=== PATIENT | male | born 1955 | race Caucasian/White ===

== ENCOUNTER 2023-06-17 09:35 | Inpatient (IN) | payer OTHER ==
[~2023-06-17] VITALS: Ht 177.8 cm; Wt 76.4 kg
[2023-06-17] MEDS: ASPirin 325 MG TAB PO ONE (09:51)
[2023-06-17 09:52] LABS: Basophils # (auto) 0 10 ^3/uL (0-0.2); Basophils % (auto) 0.1 % (0.0-2.0); Eosinophils # (auto) 0.1 10 ^3/uL (0-0.8); Eosinophils % (auto) 0.8 % (0.0-7.0); Hematocrit 55.6 % (41.0-53.0); Lymphocytes % (auto) 9.5 % (10.0-50.0); Mean Corpuscular Hemoglobin 28.8 pg (28.0-32.0); Mean Corpuscular Hgb Conc. 32.4 g/dL (32.0-36.0); Mean Corpuscular Volume 88.9 fL (80.0-100.0); Monocytes # (auto) 0.8 10 ^3/uL (0-1.3); Monocytes % (auto) 7.7 % (0.0-12.0); Neutrophils # (auto) 8.5 10 ^3/uL (1.6-8.6); Neutrophils % (auto) 81.9 % (37.0-80.0); Nucleated Red Blood Cells % 0.2 %; Red Blood Cells 6.25 10^6/uL (4.5-5.90); Red Cell Distribution Width 15.5 % (11.8-14.3); White Blood Cell 10.4 10^3/uL (4.4-10.8)
[2023-06-17 10:11] LABS: Alanine Aminotransferase 25 U/L (7-40); Albumin 4.7 g/dL (3.2-4.8); Alkaline Phosphatase 93 U/L (46-116); Anion Gap 7 (5-15); Aspartate Aminotransferase 18 U/L (13-40); BUN/Creatinine Ratio 13.5 (10.0-20.0); Blood Urea Nitrogen 18 mg/dL (9-23); Calcium 10.1 mg/dL (8.5-10.1); Carbon Dioxide 28 mmol/L (20-30); Chloride 108 mmol/L (98-107); Glucose 126 mg/dL (74-106); Potassium 4.5 mmol/L (3.5-5.1); Sodium 143 mmol/L (136-145)
[2023-06-17] MEDS: methylPREDNISolone SOD SUCC 125 MG/2 ML VL IV ONE (10:11)
[2023-06-17 10:12] LABS: Bilirubin, Total 0.8 mg/dL (0.2-1.0); Total Protein 7.5 g/dL (5.7-8.2)
[2023-06-17] MEDS: MAGNESIUM SULFATE 1GM/100ML 100 ML IV ONE (10:14)
[2023-06-17] MEDS: IPRATROPIUM BROM 0.5 MG/2.5ML INH SOL NEB ONE (10:27)
[2023-06-17] MEDS: ALBUTEROL SULF 2.5 MG/0.5ML(0.5%) NEB SOLN NEB ONE (10:27)
[2023-06-17] MEDS: ENOXAPARIN SOD 80 MG/0.8ML SYRINGE SC ONE (10:51)
[2023-06-17 11:27] VITALS: PULSE 108; RESP 16; O2SAT 94
[2023-06-17 13:04] LABS: Urine Bacteria MANY /hpf (None Seen); Urine Blood 2+ /uL (Negative); Urine Budding Yeast OCCASIONAL /hpf (None Seen); Urine Clarity Turbid (Clear); Urine Color Yellow (Yellow); Urine Hyaline Cast FEW /lpf (0 - 2); Urine Mucus FEW (None Seen); Urine Protein, UAD 2+ (Negative); Urine Specific Gravity 1.023 (1.001-1.035); Urine Urobilinogen Normal (Negative); Urine WBC 81 /hpf (0 - 3); Urine pH 5.5 (5.0-9.0)
[2023-06-17 15:39] LABS: Base Excess -2.8 mmol/L (-2.0-2.0)
[2023-06-17 15:42] LABS: Creatinine, Urine 181.8 mg/dL (30.0-125.0)
[2023-06-17] MEDS: cefTRIAXone 1GM/50ML D5W 50 ML IV ONE (15:56)
[2023-06-17] MEDS: NICOTINE 21MG/24 HR TOPICAL PATCH TD ONE (15:56)
[2023-06-17] MEDS: ENOXAPARIN SOD 80 MG/0.8ML SYRINGE SC SCH (16:23)
[2023-06-17 16:35] LABS: INR 1.06 (0.9-1.15); Prothrombin Time 11.2 sec (9.3-11.8)
[2023-06-17] MEDS: FUROSEMIDE 20 MG/2 ML VIAL IV SCH (18:03)
[2023-06-17 18:40] VITALS: BP 150/91; PULSE 94; RESP 12; TEMP 98.7; O2SAT 91
[2023-06-17 19:12] VITALS: O2SAT 94
[2023-06-17 19:56] VITALS: PULSE 94; RESP 20; O2SAT 93
[2023-06-17 21:55] VITALS: PULSE 88; RESP 15; O2SAT 95
[2023-06-17] MEDS: ALBUTEROL SULF 2.5 MG/0.5ML(0.5%) NEB SOLN NEB SCH (21:55)
[2023-06-17] MEDS: IPRATROPIUM BROM 0.5 MG/2.5ML INH SOL NEB SCH (21:55)
[2023-06-17 22:05] VITALS: PULSE 89; RESP 16; O2SAT 97
[2023-06-17] MEDS: METOPROLOL TARTRATE 25 MG TAB PO SCH (22:17)
[2023-06-17] MEDS: ATORVASTATIN 20 MG TAB PO SCH (22:17)
[2023-06-17] MEDS: methylPREDNISolone SOD SUCC 125 MG/2 ML VL IV SCH (22:17)
[2023-06-18] VITALS (9 sets, daily range): BP systolic 149–154; BP diastolic 101–117; PULSE 83–126; RESP 14–20; TEMP 97.5–97.6; O2SAT 93–97
[2023-06-18] MEDS: MELATONIN 5 MG TAB PO ONE (01:46)
[2023-06-18 05:01] LABS: Basophils # (auto) 0 10 ^3/uL (0-0.2); Basophils % (auto) 0.1 % (0.0-2.0); Eosinophils # (auto) 0 10 ^3/uL (0-0.8); Hematocrit 48.2 % (41.0-53.0); Hemoglobin 15.9 g/dL (13.5-17.5); Lymphocytes # (auto) 0.5 10 ^3/uL (0.4-5.4); Lymphocytes % (auto) 6.5 % (10.0-50.0); Mean Corpuscular Hgb Conc. 33.1 g/dL (32.0-36.0); Mean Corpuscular Volume 87.8 fL (80.0-100.0); Monocytes # (auto) 0.2 10 ^3/uL (0-1.3); Monocytes % (auto) 2.3 % (0.0-12.0); Neutrophils # (auto) 6.6 10 ^3/uL (1.6-8.6); Neutrophils % (auto) 91.1 % (37.0-80.0); Red Blood Cells 5.49 10^6/uL (4.5-5.90); Red Cell Distribution Width 15.3 % (11.8-14.3); White Blood Cell 7.2 10^3/uL (4.4-10.8)
[2023-06-18 05:16] LABS: Alanine Aminotransferase 21 U/L (7-40); Albumin 3.7 g/dL (3.2-4.8); Alkaline Phosphatase 70 U/L (46-116); Anion Gap 6 (5-15); Aspartate Aminotransferase 17 U/L (13-40); BUN/Creatinine Ratio 18.8 (10.0-20.0); Bilirubin, Total 0.6 mg/dL (0.2-1.0); Blood Urea Nitrogen 24 mg/dL (9-23); Calcium 9.4 mg/dL (8.7-10.4); Carbon Dioxide 24 mmol/L (20-30); Chloride 109 mmol/L (98-107); Glucose 152 mg/dL (74-106); Potassium 4.4 mmol/L (3.5-5.1); Sodium 139 mmol/L (136-145); Total Protein 6.4 g/dL (5.7-8.2)
[2023-06-18 05:27] LABS: LDL Cholesterol 147 mg/dL (< 100); Triglycerides 64 mg/dL (< 150)
[2023-06-18 05:29] LABS: Cholesterol 199 mg/dL (< 200); HDL Cholesterol 47 mg/dL (40-59)
[2023-06-18] MEDS: cefTRIAXone 1GM/50ML D5W 50 ML IV SCH (09:16)
[2023-06-18] MEDS: NICOTINE 21MG/24 HR TOPICAL PATCH TD SCH (10:05)
[2023-06-18] MEDS: LISINOPRIL 5 MG TAB PO SCH (12:05)
[2023-06-18] MEDS: ASPirin 81 mg TAB PO SCH (12:05)
[2023-06-18] MEDS ORDERED: IPRATROPIUM BROM 0.5 MG/2.5ML INH SOL NEB SCH (14:00)
[2023-06-18] MEDS ORDERED: ALBUTEROL SULF 2.5 MG/0.5ML(0.5%) NEB SOLN NEB SCH (14:00)
[2023-06-18] MEDS: TEMAZEPAM 15 MG CAP PO ONE (23:36)
[2023-06-19] VITALS (12 sets, daily range): BP systolic 115–154; BP diastolic 70–108; PULSE 76–100; RESP 16–20; TEMP 97.5–97.9; O2SAT 93–98
[2023-06-19] MEDS ORDERED: IPRATROPIUM BROM 0.5 MG/2.5ML INH SOL NEB PRN (06:00)
[2023-06-19] MEDS ORDERED: ALBUTEROL SULF 2.5 MG/0.5ML(0.5%) NEB SOLN NEB PRN (06:00)
[2023-06-19 06:36] LABS: Basophils # (auto) 0 10 ^3/uL (0-0.2); Basophils % (auto) 0.2 % (0.0-2.0); Eosinophils # (auto) 0 10 ^3/uL (0-0.8); Hematocrit 51.1 % (41.0-53.0); Lymphocytes # (auto) 1.1 10 ^3/uL (0.4-5.4); Lymphocytes % (auto) 8.7 % (10.0-50.0); Mean Corpuscular Hemoglobin 29.7 pg (28.0-32.0); Mean Corpuscular Hgb Conc. 33.3 g/dL (32.0-36.0); Mean Corpuscular Volume 89.2 fL (80.0-100.0); Monocytes # (auto) 1.3 10 ^3/uL (0-1.3); Monocytes % (auto) 10.8 % (0.0-12.0); Neutrophils # (auto) 9.9 10 ^3/uL (1.6-8.6); Neutrophils % (auto) 80.3 % (37.0-80.0); Nucleated Red Blood Cells % 0.1 %; Red Blood Cells 5.73 10^6/uL (4.5-5.90); Red Cell Distribution Width 15.7 % (11.8-14.3); White Blood Cell 12.3 10^3/uL (4.4-10.8)
[2023-06-19 06:50] LABS: Calcium 9.7 mg/dL (8.7-10.4); Chloride 108 mmol/L (98-107); Potassium 4.9 mmol/L (3.5-5.1); Sodium 140 mmol/L (136-145)
[2023-06-19 06:51] LABS: Anion Gap 5 (5-15); Carbon Dioxide 27 mmol/L (20-30)
[2023-06-19 06:56] LABS: BUN/Creatinine Ratio 19.9 (10.0-20.0); Glucose 99 mg/dL (74-106)
[2023-06-19 06:58] LABS: Blood Urea Nitrogen 38 mg/dL (9-23)
[2023-06-19] MEDS: FUROSEMIDE 20 MG TAB PO SCH (10:10)
[2023-06-19] MEDS: CARVEDILOL 3.125 MG TAB PO SCH (21:55)
[2023-06-19] MEDS: TEMAZEPAM 15 MG CAP PO PRN (21:56)
[2023-06-20] VITALS (8 sets, daily range): BP systolic 105–159; BP diastolic 64–97; PULSE 67–107; RESP 15–21; TEMP 97.4–98.6; O2SAT 92–100
[2023-06-20 06:56] LABS: Chloride 112 mmol/L (98-107); Potassium 4.3 mmol/L (3.5-5.1); Sodium 142 mmol/L (136-145)
[2023-06-20 06:57] LABS: Anion Gap 5 (5-15); Calcium 8.8 mg/dL (8.7-10.4); Carbon Dioxide 25 mmol/L (20-30)
[2023-06-20 07:02] LABS: Blood Urea Nitrogen 38 mg/dL (9-23); Glucose 87 mg/dL (74-106)
[2023-06-20] MEDS: EMPAGLIFLOZIN 10 MG TAB PO SCH (08:06)
[2023-06-20] MEDS: MELATONIN 5 MG TAB PO SCH (21:21)
[2023-06-21 05:00] VITALS: BP 114/72; PULSE 55; RESP 20; TEMP 98.2; O2SAT 96
[2023-06-21 06:19] LABS: Basophils # (auto) 0 10 ^3/uL (0-0.2); Basophils % (auto) 0.2 % (0.0-2.0); Eosinophils # (auto) 0.2 10 ^3/uL (0-0.8); Eosinophils % (auto) 2.9 % (0.0-7.0); Hematocrit 48.2 % (41.0-53.0); Hemoglobin 15.8 g/dL (13.5-17.5); Lymphocytes # (auto) 1.5 10 ^3/uL (0.4-5.4); Lymphocytes % (auto) 21.3 % (10.0-50.0); Mean Corpuscular Hgb Conc. 32.7 g/dL (32.0-36.0); Mean Corpuscular Volume 88.7 fL (80.0-100.0); Monocytes % (auto) 13.9 % (0.0-12.0); Neutrophils # (auto) 4.3 10 ^3/uL (1.6-8.6); Neutrophils % (auto) 61.7 % (37.0-80.0); Nucleated Red Blood Cells % 0.1 %; Red Blood Cells 5.43 10^6/uL (4.5-5.90); Red Cell Distribution Width 15.3 % (11.8-14.3)
[2023-06-21 06:30] LABS: Chloride 109 mmol/L (98-107); Potassium 4.4 mmol/L (3.5-5.1); Sodium 141 mmol/L (136-145)
[2023-06-21 06:31] LABS: Anion Gap 3 (5-15); Calcium 9.4 mg/dL (8.5-10.1); Carbon Dioxide 29 mmol/L (20-30)
[2023-06-21 06:36] LABS: BUN/Creatinine Ratio 21.6 (10.0-20.0); Blood Urea Nitrogen 32 mg/dL (9-23); Glucose 114 mg/dL (74-106)
[2023-06-21 08:00] VITALS: BP 143/83; PULSE 77; PULSE 83; RESP 21; TEMP 97.4; O2SAT 95
[2023-06-21 12:00] VITALS: BP 127/85; PULSE 80; RESP 20; TEMP 98.1; O2SAT 97
[2023-06-21 16:00] VITALS: BP 143/94; PULSE 67; RESP 20; TEMP 98.2; O2SAT 93
[2023-06-21 20:00] VITALS: PULSE 105; RESP 20; O2SAT 97
[2023-06-21 21:00] VITALS: BP 176/121; PULSE 119; RESP 28; TEMP 97.7; O2SAT 97
[2023-06-22] VITALS (8 sets, daily range): BP systolic 127–153; BP diastolic 78–104; PULSE 67–98; RESP 16–67; TEMP 97.8–98.1; O2SAT 94–98
[2023-06-22 07:06] LABS: Anion Gap 7 (5-15); Carbon Dioxide 25 mmol/L (20-30); Chloride 107 mmol/L (98-107); Potassium 4.2 mmol/L (3.5-5.1); Sodium 139 mmol/L (136-145)
[2023-06-22 07:07] LABS: Calcium 9.6 mg/dL (8.7-10.4)
[2023-06-22 07:12] LABS: BUN/Creatinine Ratio 21.1 (10.0-20.0); Blood Urea Nitrogen 30 mg/dL (9-23); Glucose 91 mg/dL (74-106)
[2023-06-22] MEDS: AMIODARONE HCL 200 MG TAB PO SCH (09:57)
[2023-06-23] VITALS (11 sets, daily range): BP systolic 91–142; BP diastolic 62–103; PULSE 50–107; RESP 16–19; TEMP 97.5–98.4; O2SAT 90–98
[2023-06-23 06:42] LABS: Chloride 110 mmol/L (98-107); Potassium 4.3 mmol/L (3.5-5.1); Sodium 139 mmol/L (136-145)
[2023-06-23 06:43] LABS: Anion Gap 5 (5-15); Calcium 9.5 mg/dL (8.5-10.1); Carbon Dioxide 24 mmol/L (20-30)
[2023-06-23 06:48] LABS: BUN/Creatinine Ratio 18.1 (10.0-20.0); Blood Urea Nitrogen 26 mg/dL (9-23); Glucose 97 mg/dL (74-106)
[2023-06-23 09:20] LABS: Basophils # (auto) 0 10 ^3/uL (0-0.2); Basophils % (auto) 0.3 % (0.0-2.0); Eosinophils # (auto) 0.1 10 ^3/uL (0-0.8); Lymphocytes # (auto) 0.7 10 ^3/uL (0.4-5.4); Lymphocytes % (auto) 10.2 % (10.0-50.0); Mean Corpuscular Hemoglobin 29.1 pg (28.0-32.0); Mean Corpuscular Hgb Conc. 32.6 g/dL (32.0-36.0); Mean Corpuscular Volume 89.3 fL (80.0-100.0); Monocytes # (auto) 1.2 10 ^3/uL (0-1.3); Monocytes % (auto) 16.7 % (0.0-12.0); Neutrophils % (auto) 70.8 % (37.0-80.0); Nucleated Red Blood Cells % 0.1 %; Red Blood Cells 5.49 10^6/uL (4.5-5.90); Red Cell Distribution Width 14.8 % (11.8-14.3); White Blood Cell 7.1 10^3/uL (4.4-10.8)
[2023-06-23 09:34] LABS: INR 1.07 (0.9-1.15); Prothrombin Time 11.3 sec (9.3-11.8)
[2023-06-23] MEDS: ALPRAZolam 0.25 MG TAB PO PRN (09:37)
[2023-06-23] MEDS: IODIXANOL 320MG/ML 100ML BTL IV ONE (10:58)
[2023-06-23] MEDS: LIDOCAINE 2%HCL (LOCAL ANESTH.) INJ 20ML MDV ONE (10:58)
[2023-06-23] MEDS: VERAPAMIL 2.5MG/ML INJ 2ML VIAL IV ONE (11:08)
[2023-06-23] MEDS: ANGIOMAX 250 MG VIAL IV ONE (11:08)
[2023-06-23] MEDS: HEPARIN SODIUM (PORCINE) 5000 UNITS/ML 1ML VIAL ONE (11:08)
[2023-06-23] MEDS: fentaNYL CITRATE 100 MCG/2 ML VL ONE (11:09)
[2023-06-23] MEDS: SODIUM CHL 0.9% 0 ML ONE (11:09)
[2023-06-23] MEDS: MIDAZOLAM HCL 2MG/2ML 2ml VIAL (1mg/ml) ONE (11:09)
[2023-06-23] MEDS ORDERED: CARV-214 PO (12:52)
[2023-06-23] MEDS ORDERED: FUR20T PO (12:52)
[2023-06-23] MEDS ORDERED: ASPI-325 PO (12:52)
[2023-06-23] MEDS ORDERED: AMIO200T33 PO (12:53)
[2023-06-23] MEDS: ACETYLCYSTEINE ORAL for CIN 20%(200MG/ML) 4ML PO SCH (14:33)
[2023-06-24] VITALS (9 sets, daily range): BP systolic 98–157; BP diastolic 52–86; PULSE 53–105; RESP 16–18; TEMP 97.7–98.2; O2SAT 93–99
[2023-06-24 06:10] LABS: Chloride 108 mmol/L (98-107); Potassium 4.5 mmol/L (3.5-5.1); Sodium 138 mmol/L (136-145)
[2023-06-24 06:11] LABS: Anion Gap 6 (5-15); Carbon Dioxide 24 mmol/L (20-30)
[2023-06-24 06:12] LABS: Calcium 9.5 mg/dL (8.7-10.4)
[2023-06-24 06:16] LABS: Glucose 95 mg/dL (74-106)
[2023-06-24 06:17] LABS: BUN/Creatinine Ratio 18.8 (10.0-20.0); Blood Urea Nitrogen 30 mg/dL (9-23)
[2023-06-24] MEDS: FUROSEMIDE 40 MG TAB PO SCH (12:51)
[2023-06-24] MEDS ORDERED: MIDODRINE HCL 10 MG TAB PO SCH (18:00)
[2023-06-24] MEDS: APIXABAN 5 MG TAB PO SCH (21:40)
[2023-06-25] VITALS (8 sets, daily range): BP systolic 100–140; BP diastolic 63–98; PULSE 69–107; RESP 18–20; TEMP 98–98.7; O2SAT 96–97
[2023-06-25] MEDS: MIDODRINE HCL 10 MG TAB PO SCH (09:44)
[2023-06-26 05:00] VITALS: BP 114/78; PULSE 67; RESP 18; TEMP 98.4; O2SAT 95
[2023-06-26 06:08] LABS: Basophils # (auto) 0 10 ^3/uL (0-0.2); Basophils % (auto) 0.4 % (0.0-2.0); Eosinophils # (auto) 0.2 10 ^3/uL (0-0.8); Eosinophils % (auto) 2.2 % (0.0-7.0); Hematocrit 48.3 % (41.0-53.0); Hemoglobin 16.2 g/dL (13.5-17.5); Lymphocytes # (auto) 1.5 10 ^3/uL (0.4-5.4); Lymphocytes % (auto) 22.4 % (10.0-50.0); Mean Corpuscular Hemoglobin 30.1 pg (28.0-32.0); Mean Corpuscular Hgb Conc. 33.6 g/dL (32.0-36.0); Mean Corpuscular Volume 89.6 fL (80.0-100.0); Monocytes # (auto) 1.1 10 ^3/uL (0-1.3); Monocytes % (auto) 16.2 % (0.0-12.0); Neutrophils # (auto) 4.1 10 ^3/uL (1.6-8.6); Neutrophils % (auto) 58.8 % (37.0-80.0); Red Blood Cells 5.39 10^6/uL (4.5-5.90); Red Cell Distribution Width 15.1 % (11.8-14.3); White Blood Cell 6.9 10^3/uL (4.4-10.8)
[2023-06-26 06:13] LABS: Anion Gap 4 (5-15); Carbon Dioxide 30 mmol/L (20-30); Chloride 108 mmol/L (98-107); Potassium 4.2 mmol/L (3.5-5.1); Sodium 142 mmol/L (136-145)
[2023-06-26 06:15] LABS: Calcium 9.7 mg/dL (8.5-10.1)
[2023-06-26 06:20] LABS: Blood Urea Nitrogen 30 mg/dL (9-23); Glucose 101 mg/dL (74-106)
[2023-06-26] MEDS: SOD CHL 0.45% 1,000 ML IV SCH (08:08)
[2023-06-26 08:10] VITALS: BP 126/85; PULSE 80; RESP 18; TEMP 97.9; O2SAT 97
[2023-06-26 08:30] VITALS: PULSE 69; PULSE 80; RESP 18; O2SAT 97
[2023-06-26] MEDS ORDERED: GUAI100S6 PO ×2 (12:07→12:08)
[2023-06-26] MEDS ORDERED: DEXT1SYP9 PO (12:09)
[2023-06-26 12:16] VITALS: BP 119/75; PULSE 80
[2023-06-26 12:18] VITALS: BP 119/75; PULSE 80; RESP 18; TEMP 97.9; O2SAT 97
== END 2023-06-26 13:34 | disposition home or self-care (01) | DRG 280 ==
LOC: ER 09:35 → TELE 15:18 → TELE-WESTW 06-18 17:00
PROVIDERS: ADMIT Nurse Practitioner Family; ATTEND Internal Medicine
PROC: 4A023N7 Measurement of Cardiac Sampling and Pressure, Left Heart, Percutaneous Approach (ICD-10-PCS; principal; 2023-06-23)
PROC: B211YZZ Fluoroscopy of Multiple Coronary Arteries using Other Contrast (ICD-10-PCS; 2023-06-23)
DX: I11.0 Hypertensive heart disease with heart failure (principal); I50.21 Acute systolic (congestive) heart failure; I21.A1 Myocardial infarction type 2; J96.01 Acute respiratory failure with hypoxia; N17.0 Acute kidney failure with tubular necrosis; I16.1 Hypertensive emergency; J44.1 Chronic obstructive pulmonary disease with (acute) exacerbation; I47.20 Ventricular tachycardia, unspecified; J44.0 Chronic obstructive pulmonary disease with (acute) lower respiratory infection; N39.0 Urinary tract infection, site not specified; I25.10 Atherosclerotic heart disease of native coronary artery without angina pectoris; E78.5 Hyperlipidemia, unspecified; I48.0 Paroxysmal atrial fibrillation; R73.03 Prediabetes; F17.210 Nicotine dependence, cigarettes, uncomplicated; J98.4 Other disorders of lung; B96.20 Unspecified Escherichia coli [E. coli] as the cause of diseases classified elsewhere; I42.0 Dilated cardiomyopathy; Z90.49 Acquired absence of other specified parts of digestive tract; Z79.899 Other long term (current) drug therapy
CPT/HCPCS: 36415; 36600; 71045; 80048; 80053; 80061; 81001; 82570; 82805; 83036; 83735; 83880; 84300; 84443; 84484; 85025; 85610; 85730; 87086; 87088; 87186; 93005; 93306; 93458; 94640; 96365; 96375; 99152; 99291; G0378; J2250; Q9967

== ENCOUNTER 2023-11-20 08:47 | Inpatient (IN) | payer OTHER ==
[~2023-11-20] VITALS: Ht 177.8 cm; Wt 86.9 kg
[~2023-11-20 08:47] MED LIST: AMIO200T33 PO; ASPI-325 PO; CARV-214 PO; DEXT1SYP9 PO; FURO20TA4 PO; GUAI100S6 PO
[2023-11-20 09:32] VITALS: PULSE 94; RESP 20; O2SAT 95
[2023-11-20 09:35] LABS: Urine Bacteria None Seen /hpf (None Seen)
[2023-11-20] MEDS: SODIUM CHLORIDE 0.9% 1,000 ML IV ONE (09:53)
[2023-11-20] MEDS: cloNIDine HCL 0.1 MG TAB PO ONE (09:53)
[2023-11-20] MEDS: ONDANSETRON HCL 4 MG/2 ML VIAL IV ONE (09:53)
[2023-11-20] MEDS: MORPHINE SULFATE 4 MG/ML SYR/VIAL IV ONE (09:53)
[2023-11-20 09:58] LABS: Basophils # (auto) 0 10 ^3/uL (0-0.2); Basophils % (auto) 0.3 % (0.0-2.0); Eosinophils # (auto) 0.1 10 ^3/uL (0-0.8); Eosinophils % (auto) 1.5 % (0.0-7.0); Hematocrit 55.6 % (41.0-53.0); Hemoglobin 18.6 g/dL (13.5-17.5); Lymphocytes # (auto) 0.8 10 ^3/uL (0.4-5.4); Lymphocytes % (auto) 11.2 % (10.0-50.0); Mean Corpuscular Hemoglobin 30.3 pg (28.0-32.0); Mean Corpuscular Hgb Conc. 33.5 g/dL (32.0-36.0); Mean Corpuscular Volume 90.4 fL (80.0-100.0); Monocytes # (auto) 0.7 10 ^3/uL (0-1.3); Monocytes % (auto) 9.3 % (0.0-12.0); Neutrophils # (auto) 5.5 10 ^3/uL (1.6-8.6); Neutrophils % (auto) 77.7 % (37.0-80.0); Nucleated Red Blood Cells % 0.1 %; Platelet Count (auto) 187 10^3/uL (140-450); Red Blood Cells 6.15 10^6/uL (4.5-5.90); Red Cell Distribution Width 14.5 % (11.8-14.3); White Blood Cell 7.1 10^3/uL (4.4-10.8)
[2023-11-20 09:58] LABS: Urine Blood 1+ /uL (Negative); Urine Clarity Clear (Clear); Urine Color Light-Yellow (Yellow); Urine Protein, UAD Negative (Negative); Urine Specific Gravity 1.008 (1.001-1.035); Urine Urobilinogen Normal (Negative); Urine WBC 1 /hpf (0 - 3)
[2023-11-20 11:24] LABS: Alanine Aminotransferase 24 U/L (7-40); Albumin 4.2 g/dL (3.2-4.8); Alkaline Phosphatase 97 U/L (46-116); Anion Gap 6 (5-15); Aspartate Aminotransferase 18 U/L (13-40); BUN/Creatinine Ratio 13.7 (10.0-20.0); Bilirubin, Total 0.8 mg/dL (0.2-1.0); Blood Urea Nitrogen 19 mg/dL (9-23); Calcium 10.2 mg/dL (8.7-10.4); Carbon Dioxide 28 mmol/L (20-31); Chloride 111 mmol/L (98-107); Glucose 116 mg/dL (74-106); Sodium 145 mmol/L (136-145); Total Protein 6.7 g/dL (5.7-8.2)
[2023-11-20] MEDS: FUROSEMIDE 20 MG/2 ML VIAL IV ONE (12:09)
[2023-11-20] MEDS: SPIRONOLACTONE 25 MG TAB PO ONE (12:20)
[2023-11-20] MEDS ORDERED: NITROGLYCERIN 0.4 MG SL TAB SL PRN (13:00)
[2023-11-20] MEDS ORDERED: hydrALAZINE HCL 20 MG/ML VL IV PRN (18:00)
[2023-11-20] MEDS: FUROSEMIDE 20 MG/2 ML VIAL IV SCH (18:49)
[2023-11-20 19:50] VITALS: PULSE 90; RESP 18; O2SAT 95
[2023-11-20 22:16] VITALS: BP 181/96; PULSE 70; PULSE 72; PULSE 74; RESP 16; RESP 19; RESP 21; TEMP 97.8; O2SAT 93; O2SAT 96
[2023-11-20] MEDS: SACUBITRIL-VALSARTAN 24mg/26mg TAB PO SCH (22:50)
[2023-11-20] MEDS: ATORVASTATIN 20 MG TAB PO SCH (22:50)
[2023-11-20] MEDS: CARVEDILOL 3.125 MG TAB PO SCH (22:50)
[2023-11-20] MEDS: ENOXAPARIN SOD 100 MG/1 ML SYRINGE SC SCH (22:51)
[2023-11-20] MEDS ORDERED: INFLUENZA TRIVALENT 2024-2025 0.5 ML INJ IM ONE (23:00)
[2023-11-21 00:40] VITALS: BP 114/75; PULSE 75; RESP 75; TEMP 98.1; O2SAT 98
[2023-11-21] MEDS: MELATONIN 5 MG TAB PO ONE (00:44)
[2023-11-21 05:00] VITALS: BP 113/68; PULSE 66; RESP 15; TEMP 98.6; O2SAT 96
[2023-11-21 06:03] LABS: Basophils # (auto) 0 10 ^3/uL (0-0.2); Basophils % (auto) 0.3 % (0.0-2.0); Lymphocytes # (auto) 1.4 10 ^3/uL (0.4-5.4); Monocytes # (auto) 0.9 10 ^3/uL (0-1.3); Neutrophils # (auto) 4.8 10 ^3/uL (1.6-8.6); Nucleated Red Blood Cells % 0.2 %; White Blood Cell 7.3 10^3/uL (4.4-10.8)
[2023-11-21 06:07] LABS: Eosinophils # (auto) 0.1 10 ^3/uL (0-0.8); Eosinophils % (auto) 1.9 % (0.0-7.0); Hematocrit 50.6 % (41.0-53.0); Hemoglobin 17.3 g/dL (13.5-17.5); Lymphocytes % (auto) 18.9 % (10.0-50.0); Mean Corpuscular Hgb Conc. 34.3 g/dL (32.0-36.0); Mean Corpuscular Volume 90.4 fL (80.0-100.0); Monocytes % (auto) 12.3 % (0.0-12.0); Neutrophils % (auto) 66.6 % (37.0-80.0); Platelet Count (auto) 170 10^3/uL (140-450); Red Blood Cells 5.59 10^6/uL (4.5-5.90); Red Cell Distribution Width 14.5 % (11.8-14.3)
[2023-11-21 06:23] LABS: Alanine Aminotransferase 18 U/L (7-40); Albumin 3.8 g/dL (3.2-4.8); Alkaline Phosphatase 78 U/L (46-116); Anion Gap 5 (5-15); Aspartate Aminotransferase 15 U/L (13-40); BUN/Creatinine Ratio 12.9 (10.0-20.0); Blood Urea Nitrogen 18 mg/dL (9-23); Calcium 9.5 mg/dL (8.7-10.4); Carbon Dioxide 26 mmol/L (20-31); Chloride 110 mmol/L (98-107); Glucose 95 mg/dL (74-106); Potassium 4.3 mmol/L (3.5-5.1); Sodium 141 mmol/L (136-145)
[2023-11-21 06:24] LABS: Bilirubin, Total 0.7 mg/dL (0.2-1.0); Total Protein 6.1 g/dL (5.7-8.2)
[2023-11-21 09:00] VITALS: BP 116/68; PULSE 54; RESP 18; TEMP 98.1; O2SAT 92
[2023-11-21] MEDS ORDERED: ENOXAPARIN SOD 40 MG/0.4 ML SYRINGE SC SCH (10:00)
[2023-11-21] MEDS ORDERED: ASPirin-EC 81 mg tab PO SCH (10:00)
[2023-11-21] MEDS: AMIODARONE HCL 200 MG TAB PO SCH (11:43)
[2023-11-21] MEDS: EMPAGLIFLOZIN 10 MG TAB PO SCH (11:43)
[2023-11-21] MEDS ORDERED: AMIO200T13 PO (11:44)
[2023-11-21] MEDS ORDERED: ATOR20TA50 PO (11:44)
[2023-11-21] MEDS ORDERED: APIX5TAB PO (11:44)
[2023-11-21] MEDS ORDERED: SACU1TAB PO (11:44)
[2023-11-21] MEDS ORDERED: CARV-214 PO (11:44)
[2023-11-21] MEDS ORDERED: FURO20TA4 PO (11:44)
[2023-11-21] MEDS ORDERED: EMPA1TAB PO (11:44)
[2023-11-21 13:00] VITALS: BP 153/80; PULSE 59; RESP 19; TEMP 97.8; O2SAT 97
== END 2023-11-21 14:28 | disposition home or self-care (01) | DRG 291 ==
LOC: ER 08:47 → TELE 13:01 → UNDOADMIN 13:01 → OVERFLOW 14:05 → CENTRAL 21:49
PROVIDERS: ADMIT Internal Medicine Geriatric Medicine; ATTEND Student in an Organized Health Care Education/Training Program
PROC: 5A09357 Assistance with Respiratory Ventilation, Less than 24 Consecutive Hours, Continuous Positive Airway Pressure (ICD-10-PCS; principal; 2023-11-20)
DX: I13.0 Hypertensive heart and chronic kidney disease with heart failure and stage 1 through stage 4 chronic kidney disease, or unspecified chronic kidney disease (principal); I50.23 Acute on chronic systolic (congestive) heart failure; N17.9 Acute kidney failure, unspecified; I16.1 Hypertensive emergency; D68.59 Other primary thrombophilia; F17.210 Nicotine dependence, cigarettes, uncomplicated; N18.9 Chronic kidney disease, unspecified; I25.10 Atherosclerotic heart disease of native coronary artery without angina pectoris; I48.0 Paroxysmal atrial fibrillation; I42.8 Other cardiomyopathies; I50.84 End stage heart failure; E78.5 Hyperlipidemia, unspecified; Z91.199 Patient's noncompliance with other medical treatment and regimen due to unspecified reason; Z90.49 Acquired absence of other specified parts of digestive tract; Z79.82 Long term (current) use of aspirin; Z79.899 Other long term (current) drug therapy
CPT/HCPCS: 36415; 71045; 80053; 81001; 83735; 83880; 84443; 84484; 85025; 85379; 90656; 93005; 93306; 93970; G0378; J2405